=== PATIENT | male | born 1995 | race Caucasian/White ===

== ENCOUNTER 2018-03-11 12:38 | Emergency (ER) | payer SELFPAY ==
[~2018-03-11] VITALS: Ht 182.9 cm; Wt 70.0 kg
[2018-03-11] MEDS ORDERED: SODIUM CHLORIDE 0.9% 1,000 ML IV ONE (14:06)
[2018-03-11] MEDS ORDERED: ONDANSETRON HCL 4MG/2ML INJ IV STA (14:06)
[2018-03-11 16:33] VITALS: BP 130/85
== END 2018-03-11 16:35 | disposition home or self-care (01) ==
LOC: ER 12:38
DX: F12.10 Cannabis abuse, uncomplicated (principal); F15.10 Other stimulant abuse, uncomplicated; R00.2 Palpitations; R07.89 Other chest pain; R20.2 Paresthesia of skin
CPT/HCPCS: 71045; 93005; 96374; 99285; J2405; J7030